=== PATIENT | female | born 1965 | race Caucasian/White ===

== ENCOUNTER 2018-09-10 00:19 | Emergency (ER) | payer MEDICAID ==
[~2018-09-10] VITALS: Ht 175.3 cm; Wt 125.0 kg
[2018-09-10 00:37] VITALS: BP 172/96
[2018-09-10] MEDS ORDERED: PENI250T2 PO (00:50)
== END 2018-09-10 01:00 | disposition home or self-care (01) ==
LOC: ER 00:20
DX: K04.7 Periapical abscess without sinus (principal); Z98.890 Other specified postprocedural states; Z79.899 Other long term (current) drug therapy
CPT/HCPCS: 99283

== ENCOUNTER 2021-05-01 02:12 | Emergency (ER) | payer MEDICAID ==
[~2021-05-01] VITALS: Ht 175.3 cm; Wt 131.8 kg
[2021-05-01 02:16] VITALS: BP 172/103
[2021-05-01 03:46] LABS: BASOPHILS # (AUTO) 0.1 X10'3 (0-0.2); BASOPHILS % (AUTO) 0.6 % (0-1); EOSINOPHILS # (AUTO) 0.2 X10'3 (0-0.9); EOSINOPHILS % (AUTO) 2.5 % (0-6); HEMATOCRIT 41.8 % (35.0-45.0); LYMPHOCYTES # (AUTO) 3.2 X10'3 (1.1-4.8); LYMPHOCYTES % (AUTO) 34.2 % (21-51); MEAN CORPUSCULAR HEMOGLOBIN 28.4 PG (27.0-31.0); MEAN CORPUSCULAR HGB CONC 33.4 g/dL (33.0-36.5); MEAN CORPUSCULAR VOLUME 84.9 FL (78-98); MEAN PLATELET VOLUME 6.6 FL (7.4-10.4); MONOCYTES # (AUTO) 0.8 X10'3 (0-0.9); MONOCYTES % (AUTO) 8.3 % (2-12); NEUTROPHILS % (AUTO) 54.4 % (42-75); PLATELET COUNT 324 X10'3 (140-440); RED BLOOD COUNT 4.92 X10'6 (4.20-5.60); RED CELL DISTRIBUTION WIDTH 15.5 % (11.5-14.5); WHITE BLOOD COUNT 9.2 X10'3 (4.5-11.0)
[2021-05-01 03:54] LABS: ALBUMIN 3.5 G/DL (3.4-5.0); ANION GAP 5 (8-16); BLOOD UREA NITROGEN 24 MG/DL (7-18); BUN/CREATININE RATIO 16.6 (6.6-38.0); CALCIUM 8.8 MG/DL (8.5-10.1); CHLORIDE 102 MMOL/L (99-107); CREATININE 1.45 MG/DL (0.40-0.90); GLUCOSE 127 MG/DL (70-104); POTASSIUM 4.5 MMOL/L (3.5-5.1); SODIUM 136 MMOL/L (135-145); eGFR 37 ML/MIN
[2021-05-01] MEDS ORDERED: iohexol 300mg/ml 100ml inj. ONE (04:02)
[2021-05-01] MEDS ORDERED: AMOX-422 PO (04:32)
[2021-05-01] MEDS ORDERED: amox tr/potassium clavulanate 875/125mg TAB PO ONE (04:35)
== END 2021-05-01 04:39 | disposition home or self-care (01) ==
LOC: ER 02:13
DX: K02.9 Dental caries, unspecified (principal); R59.0 Localized enlarged lymph nodes
CPT/HCPCS: 36415; 80048; 85025; 99283; Q9967

== ENCOUNTER 2022-05-06 13:06 | Emergency (ER) | payer MEDICAID ==
[~2022-05-06] VITALS: Ht 175.3 cm; Wt 132.0 kg
[2022-05-06 15:01] VITALS: BP 146/92
[2022-05-06 15:57] LABS: CLARITY,URINE CLOUDY (Clear); COLOR,URINE YELLOW (Yellow); GLUCOSE, URINE NEGATIVE (Neg); KETONES,URINE TRACE mg/dl (Neg); LEUKOCYTE ESTERASE ,URINE NEGATIVE (Neg); NITRITES, URINE NEGATIVE (Neg); OCCULT BLOOD,URINE NEGATIVE (Neg); PROTEIN,URINE TRACE mg/dl (Neg); UROBILINOGEN,URINE 0.2 E.U/dL (0.2-1.0)
[2022-05-06 16:00] LABS: UA COLLECTION TYPE CLN CATCH MIDSTREAM
[2022-05-06 16:02] LABS: BASOPHILS # (AUTO) 0.1 X10'3 (0-0.2); EOSINOPHILS # (AUTO) 0.2 X10'3 (0-0.9); EOSINOPHILS % (AUTO) 1.4 % (0-6); HEMATOCRIT 48.2 % (35.0-45.0); HEMOGLOBIN 16.1 g/dl (12.0-16.0); LYMPHOCYTES % (AUTO) 35.6 % (21-51); MEAN CORPUSCULAR HEMOGLOBIN 28.2 PG (27.0-31.0); MEAN CORPUSCULAR HGB CONC 33.3 g/dL (33.0-36.5); MEAN CORPUSCULAR VOLUME 84.6 FL (78-98); MEAN PLATELET VOLUME 6.8 FL (7.4-10.4); MONOCYTES # (AUTO) 1.4 X10'3 (0-0.9); NEUTROPHILS # (AUTO) 7.3 X10'3 (1.8-7.7); PLATELET COUNT 363 X10'3 (140-440); RED CELL DISTRIBUTION WIDTH 15.1 % (11.5-14.5)
[2022-05-06 16:04] LABS: SQUAMOUS EPITHELIAL CELL,UR MANY /LPF (FEW)
[2022-05-06 16:06] LABS: BACTERIA,URINE 2+ /HPF (Neg); RBC,URINE 0-2 /HPF (0-2); WBC,URINE 0-4 /HPF (0-4)
[2022-05-06 16:25] LABS: ALANINE AMINOTRANSFERASE 24 U/L (12-78); ALBUMIN 3.9 G/DL (3.4-5.0); ALKALINE PHOSPHATASE 138 IU/L (46-116); ANION GAP 9 (8-16); ASPARTATE AMINO TRANSFERASE 16 U/L (10-37); BILIRUBIN,TOTAL 0.3 MG/DL (0.1-1.0); BLOOD UREA NITROGEN 25 MG/DL (7-18); BUN/CREATININE RATIO 15.7 (6.6-38.0); CALCIUM 9.7 MG/DL (8.5-10.1); CHLORIDE 102 MMOL/L (99-107); CREATININE 1.59 MG/DL (0.40-0.90); GLUCOSE 112 MG/DL (70-104); SODIUM 139 MMOL/L (135-145); TOTAL CARBON DIOXIDE 27.8 MMOL/L (24-32); TOTAL PROTEIN 7.9 G/DL (6.4-8.2); eGFR 33 ML/MIN
[2022-05-06] MEDS ORDERED: METO-395 PO (16:54)
[2022-05-06] MEDS ORDERED: CEPH250T PO (16:54)
[2022-05-06 18:22] LABS: URINE AMPHETAMINE SCREEN POSITIVE (Neg); URINE BARBITUATE SCREEN NEGATIVE (Neg); URINE BENZODIAZEPINES SCREEN NEGATIVE (Neg); URINE CANNABINOID SCREEN NEGATIVE (Neg); URINE COCAINE SCREEN NEGATIVE (Neg); URINE METHADONE SCREEN NEGATIVE (Neg); URINE OPIATE SCREEN NEGATIVE (Neg); URINE PHENCYCLIDINE SCREEN NEGATIVE (Neg)
== END 2022-05-06 18:16 | disposition home or self-care (01) ==
LOC: ER 13:07
DX: I12.9 Hypertensive chronic kidney disease with stage 1 through stage 4 chronic kidney disease, or unspecified chronic kidney disease (principal); N18.9 Chronic kidney disease, unspecified
CPT/HCPCS: 36415; 71045; 80053; 80305; 81001; 84484; 85025; 99284